=== PATIENT | female | born 1995 | race Caucasian/White ===

== ENCOUNTER 2016-10-05 16:48 | Emergency (ER) | payer OTHER ==
[~2016-10-05] VITALS: Ht 170.2 cm; Wt 99.3 kg
[2016-10-05] MEDS ORDERED: MOTRIN800 MG PO (17:28)
[2016-10-05] MEDS ORDERED: FLEXERIL10 MG PO (17:28)
[2016-10-05 17:44] VITALS: BP 144/94
== END 2016-10-05 17:59 | disposition home or self-care (01) ==
LOC: EME 16:48 → EXP 16:48
DX: S16.1XXA Strain of muscle, fascia and tendon at neck level, initial encounter (principal); S46.912A Strain of unspecified muscle, fascia and tendon at shoulder and upper arm level, left arm, initial encounter; V43.52XA Car driver injured in collision with other type car in traffic accident, initial encounter; Y92.488 Other paved roadways as the place of occurrence of the external cause
CPT/HCPCS: 72040; 73030; 99281; 99284